=== PATIENT | female | born 1980 | race Caucasian/White ===

== ENCOUNTER 2019-10-30 16:32 | Emergency (ER) | payer OTHER, SELFPAY ==
--- NOTE | ~2019-10-30 | XR_ITS ---
EXAMINATION: XR chest 2V DATE: 10/30/2019 17:21 INDICATION: Right chest pain. TECHNIQUE: Frontal and lateral views of the chest were obtained. COMPARISON: None. FINDINGS: There is mild scarring at the lung apices. No pleural effusion or pneumothorax. The heart s ize is normal. IMPRESSION: 1. Mild scarring at the lung apices. Reviewed, dictated and finalized at location A. RETE BLOCK MASON
--- NOTE | 2019-10-30 16:56 | ECG_ITS ---
Measurements Intervals [place] Rate: 91 P: 61 [place]: 100 QRS: 22 QRSD: 89 T: 32 QT: 359 QTc: 443 Interpretive Statements SINUS RHYTHM WITH SHORT VA INTERVAL BORDERLINE ST-T WAVE ABNORMALITY- INFERIOR LEADS BASELINE WANDER- I, II, III, AVR, AVL, AVF BORDERLINE ECG Electronically Signed On 10-30-2019 19:47:45 BAG[employer] CHECKER by Willard Garcia D.O.
[2019-10-30 16:57] VITALS: BP 119/46; PULSE 96; RESP 19; TEMP 36.6; O2SAT 100
[2019-10-30 17:09] LABS: Basophils Percent Auto 0.6 % (0.2-1.2); Eosinophils Absolute Auto 0.3 K/mm3 (0-0.3); Eosinophils Percent Auto 5.2 % (0-4.4); Hematocrit 35.1 % (37.0-47.0); Hemoglobin 10.7 g/dL (12.0-15.0); Immature Granulocyte Absolute 0.01 K/mm3 (0.00-0.031); Immature Granulocyte Percent A 0.2 % (0-0.5); Lymphocytes Absolute Auto 1.47 K/mm3 (0.9-3.2); Lymphocytes Percent Auto 22.3 % (18.3-44.2); Mean Corpuscular HGB Conc 30.5 g/dl (32-36); Mean Corpuscular Hemoglobin 24.7 pg (26-34); Mean Corpuscular Volume 81.1 fl (80-100); Mean Platelet Volume 11.1 fl (7.4-10.4); Monocytes Absolute Auto 0.4 K/mm3 (0.1-0.6); Monocytes Percent Auto 5.3 % (2.6-8.5); Neutrophils Absolute Auto 4.4 K/mm3 (1.3-6.7); Neutrophils Percent Auto 66.4 % (45.5-73.1); Platelet Count Result 194 k/mm3 (150-375); Red Blood Count 4.33 M/mm3 (4.2-5.4); Red Cell Distribution Width 15.9 % (11.5-14.5); White Blood Count 6.6 K/mm3 (4.5-10.0)
[2019-10-30 17:17] LABS: Prothrombin Time 13.2 Seconds (11.1-14.7)
[2019-10-30 17:18] LABS: Partial Thromboplastin Time 29.6 SECONDS (22.3-36.8)
[2019-10-30 17:19] LABS: Blood Urea Nitrogen 8 mg/dL (7-17); Calcium 9.4 mg/dL (8.4-10.2); Carbon Dioxide 25 mmol/L (22-30); Chloride 101 mmol/L (98-107); Estimated Glomerular Filt Rate > 60; Glucose 91 mg/dL (65-105); Potassium 4.3 mmol/L (3.4-5.0); Sodium 139 mmol/L (137-145)
[2019-10-30 17:32] LABS: Troponin I < 0.012 ng/mL (0.000-0.034)
--- NOTE | 2019-10-30 19:54 | ED.CHESTPAIN ---
HPI - Chest Pain General Chief Complaint: Chest Pain Stated Complaint: chest pain since Sunday Time Seen by Provider: 10/30/19 19:53 Source: patient and RN notes reviewed Mode of arrival: ambulatory Limitations: no limitations History of Present Illness HPI narrative: A 39 y/o female presents to the ED with worsening, intermittent, rt sided chest tightness since Sunday night. She reports associated SOB, AIDAN hand and feet tingling. She states that today the pain began to be aggravated when she swallowed food, so she decided to come to the ED. She notes that the pain radiates into her rt shoulder and rt upper back. She denies any CP or SOB at this time. She also denies any ABD pain, N/V/D, cough, sore throat, nasal congestion, leg edema, or leg pain. MD complaint: chest pain Onset (ago): day(s) (5) Timing of current episode: episodic and now resolved Pain location: right chest Pain radiation: back (rt upper) and right shoulder Quality: tightness Exacerbating factors: other (swallowing food) Associated symptoms: dyspnea (resolved) Related Data Home Medications Medication Instructions Recorded Confirmed cyanocobalamin (vitamin B-12) mcg 10/30/19 ferrous sulfate 10/30/19 omeprazole magnesium [Prilosec OTC] 20 mg PO DAILY 10/30/19 Allergies Allergy/AdvReac Type Severity Reaction Status Date / Time amoxicillin Allergy Intermediate Hives Verified 10/30/19 20:02 penicillin G Allergy Mild Hives / Verified 10/30/19 20:02 [place] Review of Systems Review of Systems: All systems reviewed & are unremarkable except as noted in HPI and below ENT: Denies nasal congestion and Denies sore throat Cardiovascular: Cardiovascular: Reports chest pain (rt intermittetn - resolved) and Denies leg edema Respiratory: Respiratory: Denies cough and Reports dyspnea (resovled) Gastrointestinal: Gastrointestinal: Denies abdominal pain, Denies diarrhea, Denies nausea and Denies vomiting Musculoskeletal: Musculoskeletal: Denies other (leg pain) [facility] Past Medical History Medical History (Updated 10/30/19 @ 20:35 by Niurka Isbell MD) B12 deficiency SVT (supraventricular tachycardia) Surgical History Surgical History (Updated 10/30/19 @ 20:10 by Hasmukh La) History of dilation and curettage History of lithotripsy Social History Social History (Updated 10/30/19 @ 20:11 by Hasmukh La) Smoking status: Never smoker Gender identity (if verbalized by the patient): Female Exam Const: General: cooperative, no acute distress and alert Nutritional Appearance: well nourished Orientation/consciousness: patient oriented x3 Limitations: no limitations HENMT: Mouth: Yes lip normal and Yes moist mucous membranes Chest: Chest palpation & inspection: tenderness costochondral junction (rt) Resp: Effort & Inspection: normal respiratory effort Auscultation: clear to auscultation bilaterally Cardio: Rate: regular rate Rhythm: regular rhythm GI: GI Palp: Yes Soft to palpation and No Tenderness to palpation present (GI) Auscultation: normal bowel sounds Skin: General skin exam: normal color Neuro: General: patient oriented x3 Cognition (Neuro): normal cognition Speech: normal speech Extrem: General: normal to inspection, full ROM and no clubbing, cyanosis or edema Psych: Mental Status: mental status grossly normal Affect: normal affect Attitude: cooperative Course Course Emergency Course: Patient low risk heart score and negative troponin x2. Patient with symptoms consistent with acid reflux given she is having pain with swallowing. Patient has reproducible musculoskeletal tenderness on exam to account for her chest pain. Advised continuing omeprazole that she just recently started and taking Tylenol as needed for pain. Patient to follow-up with her primary care physician for further evaluation and treatment, especially if not improving. Vital Signs Vital signs: Vital Signs Temperature 97.9 F 10/30/19 16:5
[2019-10-30 19:59] VITALS: BP 109/70; PULSE 80; RESP 16; O2SAT 100
[2019-10-30] MEDS: ASPIRIN 81 MG CHEWABLE TABLET 324 MG PO (20:06)
[2019-10-30 20:25] LABS: Troponin I < 0.012 ng/mL (0.000-0.034)
== END 2019-10-30 20:54 | disposition home or self-care (01) ==
PROVIDERS: Emergency Medicine; Emergency Provider Emergency Medicine
DX: R07.89 Other chest pain (principal); K21.9 Gastro-esophageal reflux disease without esophagitis; E53.8 Deficiency of other specified B group vitamins; R94.31 Abnormal electrocardiogram [ECG] [EKG]
CPT/HCPCS: 36415; 71046; 80048; 84484; 85025; 85610; 85730; 93005; 99284; A9270

== ENCOUNTER 2019-12-11 19:54 | Emergency (ER) | payer OTHER, SELFPAY ==
--- NOTE | ~2019-12-11 | XR_ITS ---
EXAMINATION: XR chest 1V portable DATE: 12/11/2019 21:54 INDICATION: Cough and shortness of breath. TECHNIQUE: A single frontal view of the chest was obtained. COMPARISON: Chest 2 views 10/30/2019 FINDINGS: There is mild scarring at the lung apices. No pleural effusion or pneumothorax. The heart s ize is normal. IMPRESSION: 1. Stable mild scarring at the lung apices. Reviewed, dictated and finalized at location A.
[2019-12-11 20:31] VITALS: BP 137/86; PULSE 109; RESP 28; TEMP 37.6; O2SAT 100
--- NOTE | 2019-12-11 20:36 | ED.SOB ---
HPI - SOB/Dyspnea General Chief Complaint: Shortness of Breath/Dyspnea Stated Complaint: SOB Time Seen by Provider: 12/11/19 19:59 Source: patient and RN notes reviewed Mode of arrival: ambulatory Limitations: no limitations History of Present Illness HPI Narrative: A 39 y/o female presents to the ED last started to have ABD pain that resolved after 10-20 minutes Sunday - worsening productive cough, body aches, highest fever of 99.6, chest discomfort worse with deep inspiration, SOB this morning started to have diarrhea, nausea, chills, tingling in AIDAN hands and AIDAN feet pacing improves CP no positive COVID exposure Related Data Home Medications Medication Instructions Recorded Confirmed cyanocobalamin (vitamin B-12) mcg 10/30/19 ferrous sulfate 10/30/19 omeprazole magnesium [Prilosec OTC] 20 mg PO DAILY 10/30/19 Allergies Allergy/AdvReac Type Severity Reaction Status Date / Time amoxicillin Allergy Intermediate Hives Verified 10/30/19 20:02 penicillin G Allergy Mild Hives / Verified 10/30/19 20:02 Red Face PMFSH Past Medical History Medical History (Updated 10/31/19 @ 00:00 by Bernadette Lopez) B12 deficiency SVT (supraventricular tachycardia) Surgical History Surgical History (Updated 10/30/19 @ 20:10 by Hasmukh La) History of dilation and curettage History of lithotripsy Social History Social History (Updated 10/30/19 @ 20:11 by Hasmukh La) Smoking status: Never smoker Gender identity (if verbalized by the patient): Female Discharge Plan Discharge Prescriptions: No Action ferrous sulfate 325 mg (65 mg iron) tablet RF: 0 cyanocobalamin (vitamin B-12) 1,000 mcg tablet, sublingual RF: 0 Prilosec OTC 20 mg Tablet,Delayed Release (Dr/Ec) 20 mg PO DAILY RF: 0
[2019-12-11 20:43] VITALS: O2SAT 100
--- NOTE | 2019-12-11 20:43 | ED.URI ---
HPI - URI/Sore Throat General Chief Complaint: Shortness of Breath/Dyspnea Stated Complaint: SOB Time Seen by Provider: 12/11/19 19:59 Source: patient and RN notes reviewed Mode of arrival: ambulatory Limitations: no limitations History of Present Illness HPI Narrative: A 39 y/o female presents to the ED with multiple worsening URI symptoms for the past 6 days. She reports associated dry cough, body aches, chest discomfort, SOB, and a fever that reached 99.6. She states that this morning she developed nausea, diarrhea, chills, and AIDAN hand and AIDAN foot tingling. She notes that she lives with her 5 children but denies any of them having similar symptoms. She also notes that 8 days ago she had some ABD pain that lasted 10-20 minutes. She denies any positive known COVID-19 exposure. She also denies any vomiting. MD elicited complaint: other (Multiple) Onset (ago): day(s) (6) Consistency: progressively worsening Associated symptoms: fever (that reached 99.6), chills, cough (dry), chest pain (discomfort), shortness of breath, abdominal pain (resolved), nausea, diarrhea and other (body aches, AIDAN hand and AIDAN foot tingling) Related Data Home Medications Medication Instructions Recorded Confirmed cyanocobalamin (vitamin B-12) mcg 10/30/19 ferrous sulfate 10/30/19 omeprazole magnesium [Prilosec OTC] 20 mg PO DAILY 10/30/19 Allergies Allergy/AdvReac Type Severity Reaction Status Date / Time amoxicillin Allergy Intermediate Hives Verified 10/30/19 20:02 penicillin G Allergy Mild Hives / Verified 10/30/19 20:02 [place] Review of Systems Review of Systems: All systems reviewed & are unremarkable except as noted in HPI and below Constitutional: Constitutional: Reports body ache(s), Reports chills and Reports fever(s) (that reached 99.6) Cardiovascular: Cardiovascular: Reports chest pain (discomfort) Respiratory: Respiratory: Reports cough (dry) and Reports dyspnea Gastrointestinal: Gastrointestinal: Reports abdominal pain (resolved), Reports diarrhea, Reports nausea and Denies vomiting Neurologic: Reports tingling (AIDAN hand and AIDAN foot) PMFSH Past Medical History Medical History B12 deficiency SVT (supraventricular tachycardia) Surgical History Surgical History History of dilation and curettage History of lithotripsy Social History Social History Smoking status: Never smoker Gender identity (if verbalized by the patient): Female Exam Narrative: Exam Narrative: General appearance: Well-developed, looks anxious Skin: Normal color Head: Normocephalic, nontraumatic Eyes: Clear conjunctiva ENT: Oropharynx normal, ears normal, nose normal Neck: Supple, nontender Chest and respiratory: Airway patent, no respiratory distress, no accessory muscle use Heart: Regular rate/rhythm Abdomen: Soft, nontender, no organomegaly, quiet bowel sounds Vascular: Normal peripheral pulses, normal capillary refill. Musculoskeletal: Normal range of motion, nontender back Neurologic: Alert and oriented ?3, [employer]AREHOU[employer] is normal as tested, no gross motor deficit Course Course Emergency Course: Stable Consultations Consultation #1: Discussed case with Bonnie Whitt. Stated that if the pt is going to be admitted that they should be tested, but if they are going to be d/c the pt should not be d/c. Date: 12/11/19 Time: 20:22 Vital Signs Vital signs: Vital Signs Temperature 37.6 C H 12/11/19 20:31 Pulse Rate 109 H 12/11/19 20:31 Respiratory Rate 28 H 12/11/19 20:31 Blood Pressure 137/86 12/11/19 20:31 Pulse Oximet
[2019-12-11 20:44] VITALS: PULSE 104
--- NOTE | 2019-12-11 20:44 | PC.NURSE ---
Pt reports once a year she goes into SVTs.
--- NOTE | 2019-12-11 20:50 | ECG_ITS ---
Measurements Intervals [place] Rate: 89 P: 73 [place]: 121 QRS: 36 QRSD: 86 T: 42 QT: 367 QTc: 448 Interpretive Statements SINUS RHYTHM NORMAL ECG Electronically Signed On 12-12-2019 7:12:58 CDT by Willard Garcia D.O.
--- NOTE | 2019-12-11 21:24 | PCRCNOTE ---
ATTEMPTED ABG X2 WITHOUT SUCCESS. CHARGE NURSE DUANE NOTIFIED.
[2019-12-11 21:36] LABS: Basophils Absolute Auto 0.1 K/mm3 (0.0-0.1); Basophils Percent Auto 0.8 % (0.2-1.2); Eosinophils Absolute Auto 0.1 K/mm3 (0-0.3); Eosinophils Percent Auto 0.8 % (0-4.4); Hematocrit 39.2 % (37.0-47.0); Hemoglobin 12.1 g/dL (12.0-15.0); Immature Granulocyte Absolute 0.01 K/mm3 (0.00-0.031); Immature Granulocyte Percent A 0.2 % (0-0.5); Lymphocytes Absolute Auto 1.34 K/mm3 (0.9-3.2); Lymphocytes Percent Auto 21.3 % (18.3-44.2); Mean Corpuscular HGB Conc 30.9 g/dl (32-36); Mean Corpuscular Hemoglobin 24.5 pg (26-34); Mean Corpuscular Volume 79.4 fl (80-100); Mean Platelet Volume 11.3 fl (7.4-10.4); Monocytes Absolute Auto 0.4 K/mm3 (0.1-0.6); Monocytes Percent Auto 6.7 % (2.6-8.5); Neutrophils Absolute Auto 4.4 K/mm3 (1.3-6.7); Neutrophils Percent Auto 70.2 % (45.5-73.1); Platelet Count Result 260 k/mm3 (150-375); Red Blood Count 4.94 M/mm3 (4.2-5.4); Red Cell Distribution Width 15.6 % (11.5-14.5); White Blood Count 6.3 K/mm3 (4.5-10.0)
[2019-12-11 21:48] LABS: Alanine Aminotransferase 15 U/L (4-35); Albumin Level 5.5 g/dL (3.5-5.1); Alkaline Phosphatase 73 U/L (38-126); Aspartate Amino Transferase 23 U/L (14-36); Bilirubin,Total 0.6 mg/dL (0.2-1.3); Blood Urea Nitrogen 8 mg/dL (7-17); Calcium 10.4 mg/dL (8.4-10.2); Carbon Dioxide 19 mmol/L (22-30); Chloride 104 mmol/L (98-107); Estimated CRCL calculation 91 ml/min; Estimated Glomerular Filt Rate > 60; Glucose 95 mg/dL (65-105); Potassium 3.6 mmol/L (3.4-5.0); Sodium 138 mmol/L (137-145)
== END 2019-12-11 23:10 | disposition home or self-care (01) ==
PROVIDERS: Emergency Provider Emergency Medicine
DX: J06.9 Acute upper respiratory infection, unspecified (principal); B34.9 Viral infection, unspecified; E53.8 Deficiency of other specified B group vitamins
CPT/HCPCS: 36415; 71045; 80053; 81025; 85025; 87040; 87804; 93005; 99284